=== PATIENT | male | born 1950 | race Caucasian/White ===

== ENCOUNTER 2020-07-16 13:19 | Observation (INO) ==
[2020-07-16] MEDS ORDERED: NORMAL SALINE 1,000 ML IV ONE ×2 (13:55→17:16)
--- NOTE | 2020-07-16 14:04 | ERNOTE ---
Medical Problem HPI - Narrative Date of Service: 07/16/20 - General Chief Complaint: Diabetes Related Problem Time Seen by Provider: 07/16/20 13:50 Source: patient Exam Limitations: hard of hearing - Immun/Allergies/Home Medications Immunizations: IMMUNIZATION HX Immunizations Up to Date Yes History of Influenza Vaccine Yes Hx Pneumococcal Vaccination Yes Allergies/Adverse Reactions: Allergies No Known Allergies Allergy (Verified 07/16/20 13:56) Home Medications: HOME MEDICATIONS Albuterol Sulfate [Proair Respiclick] 90 mcg IH BID 03/07/18 [Last Taken Unknown] Blood Sugar Diagnostic, Drum [Accu-Chek Compact] 1 each MC TID 03/07/18 [Last Taken Unknown] Calcium Carbonate [Tums] 500 mg PO PRN PRN 03/07/18 [Last Taken Unknown] HYDROcodone/ACETAMINOPHEN [Hydrocodon-Acetaminophen 5-325] 1 each PO PRN PRN 03/07/18 [Last Taken Unknown] Insulin Glargine,Hum.rec.anlog [Lantus] 15 units SC HS 03/07/18 [Last Taken Unknown] Losartan Potassium [Cozaar] 100 mg PO DAILY 03/07/18 [Last Taken Unknown] Omeprazole 20 mg PO BID 03/07/18 [Last Taken Unknown] QUEtiapine FUMARATE [Seroquel] 25 mg PO HS 03/07/18 [Last Taken Unknown] Sildenafil Citrate 100 mg PO PRN 03/07/18 [Last Taken Unknown] Silver Sulfadiazine [Silvadene] 1 appl TP PRN 03/07/18 [Last Taken Unknown] Skin Cleanser Comb No.31 [Skintegrity] 236 ml TP PRN 03/07/18 [Last Taken Unknown] Tamsulosin HCl [Flomax] 0.4 mg PO DAILY 03/07/18 [Last Taken Unknown] glipiZIDE [Glipizide] 10 mg PO BID 03/07/18 [Last Taken Unknown] metFORMIN HCL [Metformin HCl] 1,000 mg PO BID 03/07/18 [Last Taken Unknown] - History of Present History Narrative: Patient presents to the ED for high blood sugars. He relates that he really hasn't been eating well the last couple of days. Blood sugar over 400. Took insulin last night. He relates that a few days ago did not feel well but no specific complaints. No fever. No falls. No syncope. states he gets winded when he walks, but this is not acute. Timing: other - getting better Severity: moderate Modifying Factors - (Improves): Present: other - nothing Modifying Factors - (Worsens): Present: other - nothing Review of Systems - Review of Systems Constitutional: Absent: fever EYE: Present: no symptoms reported ENT: Absent: sore throat Respiratory: Present: See HPI Cardiology: Absent: syncope Gastrointestinal/Abdominal: Absent: abdominal pain Genitourinary: Absent: dysuria Neurological: Absent: weakness Endocrine: Present: See HPI All Other Systems: All systems neg except as marked Medical History (Last Reviewed 07/16/20 @ 14:02 by Joon Chin MD) Acute lower urinary tract infection Anemia Atrial fibrillation BPH (benign prostatic hyperplasia) Back pain CAD (coronary artery disease) Colon cancer screening Coronary arteriosclerosis Esophagitis GERD (gastroesophageal reflux disease) Hepatitis C antibody test positive Hyperlipidemia Hypertension Insomnia Insulin dependent diabetes mellitus [place] Obesity Sensorineural hearing loss Sleep apnea Spinal stenosis in cervical region Umbilical hernia without mention of obstruction or gangrene Venous thrombosis and embolism Surgical History: Surgical History (Last Reviewed 07/16/20 @ 14:02 by Joon Chin MD) History of amputation of toe Social History: (Last Reviewed 07/16/20 @ 14:02 by Joon Chin MD) Tobacco: Smoking Status: Former smoker Alcohol: alcohol intake: never Substance Use: substance use type: does not use Physical Exam - Physical Exam General Appearance: Present: alert, no apparent distress Head Exam: Present: normal inspection, no evidence of injury Eye Exam: Normal inspection: bilateral, PERRL: bilateral Ears, Nose, Throat: Present: normal ENT inspection Neck: Present: normal inspection Respiratory: Present: no respiratory distress, normal breath sounds, no accessory muscle use, lungs clear Cardiovascular/Chest: Present: tachycardia, irregularly irregular Gastrointestinal/Abdominal: Present: normal bowel sounds, nontender, soft Back Exam: Absent: CVA tenderness (R), CVA tenderness (L) Extremity Exam: Present: normal range of motion Neurological Exam: Present: alert, no motor/sensory deficits Skin Exam: Present: normal color, warm/dry Progress - Results and Orders Patient's Lab Results:: I have reviewed the patient's lab results. - Vital Signs Patient's Vital Signs:: I have reviewed the patient's vital signs. Vital Signs: Vital Signs 07/16/20 13:30 Temperature 35.9 C L Pulse Rate 92 Respiratory Rate 98 H Blood Pressure 103/62 O2 Sat by Pulse Oximetry 98 - EKG EKG #1 EKG: atrial fibrillation EKG read: Interp. by me EKG Comments: A fib rate 116. RBBB (Old). No clear evidence of STEMI. - X-Ray X-Ray #1 X-Ray: chest Interpretation: Interp. by me X-ray Comments: I personally reviewed CXR images as well as official radiology report. - Progress/Reassessment Chief Complaint: Diabetes Related Problem Progress Note-Subjective: 07/16/20 17:24 Patient given IV fluids here. He has elevated WBC, elevated Cr that is new. Has a fib with RVR (patient has Hx a fib by chart but does not remember that being the case). He ambulated here and desaturated to 87% RA and his HR went to 150s. Given all of these findings I felt hospital observation most appropriate. Patient is agreeable to this and wants to stay [facility] than [facility] I spoke with Dr Albright who will admit the patient obs. Departure Clinical Impression: Atrial fibrillation with RVR, Dehydration, DEBRA (acute kidney injury), Hyperglycemia - Departure Disposition: Still a patient Condition: Fair
[2020-07-16 14:17] LABS: Hematocrit 47.6 % (42.0-52.0); Hemoglobin 15.6 gm/dL (13.5-18.0); Mean Cell Volume 85.6 fl (78-100); Mean Corpuscular Hemoglobin 28.1 pg (27-31); Mean Corpuscular Hgb Conc 32.8 g/dl (32-36); Mean Platelet Volume 10.2 fl (8-11.3); Neutrophil % 72.2 % (42-75.0); Platelet Count 330 K/mm3 (150-450); Red Blood Count 5.56 M/mm3 (4.7-6.0); Red Cell Distribution Width 13.4 % (11.5-14.0); White Blood Count 13.9 K/mm3 (4.0-10.5)
[2020-07-16 14:26] LABS: Prothrombin Time (Patient) 10.8 Seconds (9.1-10.7)
[2020-07-16 14:29] LABS: INR 1.04 INR (0.92-1.08); Partial Thrombolplastin Time 24.9 Seconds (24-32)
[2020-07-16 14:37] LABS: ALT 39 U/L (19-67); AST 17 U/L (0-48); Albumin * 3.5 gm/dl (3.4-5.0); Alkaline Phosphatase * 111 U/L (50-170); Anion Gap 14.7 mmol/L (6.8-13.8); BNP * 623 pg/mL (5-350); BUN/Creatinine Ratio 19.8 (9.0-21.6); Bilirubin, Total 0.5 mg/dL (0.0-1.1); Blood Urea Nitrogen 36 mg/dL (6-23); Ca. Corrected For Albumin 9.2 mg/dL (8.4-10.2); Calcium * 9.1 mg/dL (7.9-10.9); Carbon Dioxide 23.2 mmol/L (24-32.6); Chloride 99 mmol/L (97-106); Glucose * 378 mg/dL (70-110); Potassium 4.9 mmol/L (3.4-4.6); Sodium 132 mmol/L (132-142); Total Protein 7.5 gm/dL (6.2-8.2)
[2020-07-16 14:40] LABS: Troponin I Less than 0.017 ng/mL (0.00-0.10)
[2020-07-16] MEDS ORDERED: cefTRIAXone SODIUM 1,000 MG/100 ML BAG IV ONE (15:45)
[2020-07-16 15:54] LABS: Urine Bilirubin Negative (NEGATIVE); Urine Blood Negative /ul (NEGATIVE); Urine Ketone Negative (NEGATIVE); Urine Nitrite Negative (NEGATIVE); Urine Protein Negative (NEGATIVE); Urine Specific Gravity 1.025 SP.GR. (1.005-1.030); Urine Urobilinogen Normal (NORMAL); Urine pH 5.5 pH (5.0-7.0)
[2020-07-16 16:03] LABS: Urine Appearance Clear (CLEAR); Urine Color Yellow
[2020-07-16 16:04] LABS: Urine Bacteria TRACE; Urine RBC None Seen /hpf (0-5); Urine WBC TRACE /hpf (0-5)
--- NOTE | 2020-07-16 17:43 | HP ---
Chief Complaint - Chief Complaint Date of Service: 07/16/20 Time of Service: 17:11 Chief Complaint: Elevated blood sugar, shortness of breath with exertion History of Present Illness: 70-year-old male with a past medical history of atrial fibrillation not on anticoagulation, anemia, CAD, BPH, GERD, hepatitis C, hyperlipidemia, obesity, insomnia, insulin-dependent diabetes mellitus, sleep apnea, spinal stenosis presents from home with complaints of a blood sugar reading over 400. He states he has also been having shortness of breath with exertion for the past 6 months. [facility] In the ER he was found to have A. fib and his heart rate increased to 150 with ambulation, his O2 sats were normal at rest but he desaturated to 87% with ambulation. Labs showed a mild leukocytosis of 13.9, he appears to run high every time he has been seen in the ER and white blood cell ranges from 11.3-12.4 in the past. Blood work is also positive for elevated lactic acid of 2.8, random glucose of 378, potassium of 4.9, GFR of 39 and creatinine of 1.82, creatinine in 2008 was 1.35 and GFR in 2008 was 56. BNP of 623, troponin of less than 0.017. UA was negative and chest x-ray showed no acute chest disease, small hiatal hernia. He received 1 dose of ceftriaxone in the emergency room and IV fluids. He denies chest pain or abdominal pain. He is being admitted for further evaluation and monitoring of the A. fib and dehydration. Medical History (Last Reviewed 07/16/20 @ 14:02 by Joon Chin MD) Acute lower urinary tract infection Anemia Atrial fibrillation BPH (benign prostatic hyperplasia) Back pain CAD (coronary artery disease) Colon cancer screening Coronary arteriosclerosis Esophagitis GERD (gastroesophageal reflux disease) Hepatitis C antibody test positive Hyperlipidemia Hypertension Insomnia Insulin dependent diabetes mellitus [place] Obesity Sensorineural hearing loss Sleep apnea Spinal stenosis in cervical region Umbilical hernia without mention of obstruction or gangrene Venous thrombosis and embolism Surgical History: Surgical History (Last Reviewed 07/16/20 @ 14:02 by Joon Chin MD) History of amputation of toe Family History: Family History (Last Updated 07/16/20 @ 17:46 by Abeba Albright MD) Other Family history non-contributory Social History: (Last Reviewed 07/16/20 @ 14:02 by Joon Chin MD) Tobacco: Smoking Status: Former smoker Alcohol: alcohol intake: never Substance Use: substance use type: does not use Review Of Systems (GEN) - Review of Systems Generalized/Overall Review: Absent: Fever Respiratory: Present: Shortness of Breath - With exertion Cardiac: Absent: Chest Pain Abdominal: Absent: Abdominal Pain Misc: All systems neg except as marked Immunizations: IMMUNIZATION HX Immunizations Up to Date Yes History of Influenza Vaccine Yes Hx Pneumococcal Vaccination Yes Allergies/Adverse Reactions: Allergies Allergy/AdvReac Type Severity Reaction Status Date / Time No Known Allergies Allergy Verified 07/16/20 13:56 Home Medications: HOME MEDICATIONS Albuterol Sulfate [Proair Respiclick] 90 mcg IH BID 03/07/18 [Last Taken Unknown] Blood Sugar Diagnostic, Drum [Accu-Chek Compact] 1 each MC TID 03/07/18 [Last Taken Unknown] Calcium Carbonate [Tums] 500 mg PO PRN PRN 03/07/18 [Last Taken Unknown] HYDROcodone/ACETAMINOPHEN [Hydrocodon-Acetaminophen 5-325] 1 each PO PRN PRN 03/07/18 [Last Taken Unknown] Insulin Glargine,Hum.rec.anlog [Lantus] 15 units SC HS 03/07/18 [Last Taken Unknown] Losartan Potassium [Cozaar] 100 mg PO DAILY 03/07/18 [Last Taken Unknown] Omeprazole 20 mg PO BID 03/07/18 [Last Taken Unknown] QUEtiapine FUMARATE [Seroquel] 25 mg PO HS 03/07/18 [Last Taken Unknown] Sildenafil Citrate 100 mg PO PRN 03/07/18 [Last Taken Unknown] Silver Sulfadiazine [Silvadene] 1 appl TP PRN 03/07/18 [Last Taken Unknown] Skin Cleanser Comb No.31 [Skintegrity] 236 ml TP PRN 03/07/18 [Last Taken Unknown] Tamsulosin HCl [Flomax] 0.4 mg PO DAILY 03/07/18 [Last Taken Unknown] glipiZIDE [Glipizide] 10 mg PO BID 03/07/18 [Last Taken Unknown] metFORMIN HCL [Metformin HCl] 1,000 mg PO BID 03/07/18 [Last Taken Unknown] Exam - Exam Vital Signs: Vital Signs - Last Taken Temp 35.9 C L 07/16/20 13:30 Pulse 92 07/16/20 13:30 Resp 21 H 07/16/20 13:30 BP 103/62 07/16/20 13:30 Pulse Ox 98 07/16/20 13:30 Constitutional: Present: Alert, Cooperative, Well developed, Well nourished, No distress, Elderly, Obese ENT Exam: Present: hard of hearing, moist mucous membranes Eye Exam: bilateral eye: PERRL, EOMI, abnormal EOM Neck: Present: non-tender, supple. Absent: lymphadenopathy (R), lymphadenopathy (L) Back Exam: Present: no CVA tenderness, no vertebral tenderness, other - [place] left upper back Respiratory: Present: lungs clear, no respiratory distress, no accessory muscle use, No wheezing. Absent: crackles, rhonchi Cardiovascular/Chest: Present: normal peripheral pulses, no edema, no murmur, irregularly irregular Peripheral Pulses: dorsalis-pedis (R): 2+, dorsalis-pedis (L): 2+ Abdomen: Present: Normal bowel sounds, soft, nontender, obese Extremity: Present: non-tender, no pedal edema Skin Exam: Present: normal color, warm/dry Neurologic: Present: alert, normal mood/affect Appearance: Present: appropriate appearance, appropriate insight Eye contact: Present: cooperative Thoughts: Present: normal thought pattern, normal mood /affect Diagnostic Studies: Abnormal Lab Results 07/16/20 07/16/20 07/16/20 Range/Units 14:10 14:10 14:10 WBC 13.9 H (4.0-10.5) K/mm3 Immature Gran # (Auto) 0.05 H (0.000-0.0310) K/mm3 Neutrophils # 10.0 H (1.3-6.0) K/mm3 PT (9.1-10.7) Seconds Potassium 4.9 H (3.4-4.6) mmol/L Carbon Dioxide 23.2 L (24-32.6) mmol/L Anion Gap 14.7 H (6.8-13.8) mmol/L BUN 36 H (6-23) mg/dL Creatinine 1.82 H (0.4-1.4) mg/dL Est GFR (Non-Af Amer) 39 L D (60-130) mL/min Random Glucose 378 H (70-110) mg/dL Lactic Acid, Venous 2.8 H* (0.4-2.0) mmol/L B-Natriuretic Peptide 623 H (5-350) pg/mL Urine Glucose (UA) (NEGATIVE) mg/dL Hyaline Casts (NONE) /LPF 07/16/20 07/16/20 07/16/20 Range/Units 14:10 15:12 17:04 WBC (4.0-10.5) K/mm3 Immature Gran # (Auto) (0.000-0.0310) K/mm3 Neutrophils # (1.3-6.0) K/mm3 PT 10.8 H (9.1-10.7) Seconds Potassium (3.4-4.6) mmol/L Carbon Dioxide (24-32.6) mmol/L Anion Gap (6.8-13.8) mmol/L BUN (6-23) mg/dL Creatinine (0.4-1.4) mg/dL Est GFR (Non-Af Amer) (60-130) mL/min Random Glucose (70-110) mg/dL Lactic Acid, Venous 3.7 H* (0.4-2.0) mmol/L B-Natriuretic Peptide (5-350) pg/mL Urine Glucose (UA) >=1000 H (NEGATIVE) mg/dL Hyaline Casts 5-10 H (NONE) /LPF Laboratory Results WBC 13.9 K/mm3 (4.0-10.5) H 07/16/20 14:10 RBC 5.56 M/mm3 (4.7-6.0) 07/16/20 14:10 Hgb 15.6 gm/dL (13.5-18.0) 07/16/20 14:10 Hct 47.6 % (42.0-52.0) 07/16/20 14:10 MCV 85.6 fl (78-100) 07/16/20 14:10 MCH 28.1 pg (27-31) 07/16/20 14:10 MCHC 32.8 g/dl (32-36) 07/16/20 14:10 RDW 13.4 % (11.5-14.0) 07/16/20 14:10 Plt Count 330 K/mm3 (150-450) 07/16/20 14:10 MPV 10.2 fl (8-11.3) 07/16/20 14:10 Immature Gran % (Auto) 0.40 % (0.001-0.429) 07/16/20 14:10 Immature Gran # (Auto) 0.05 K/mm3 (0.000-0.0310) H 07/16/20 14:10 Neutrophils % 72.2 % (42-75.0) 07/16/20 14:10 Lymphocytes % 20.6 % (20-51) 07/16/20 14:10 Monocytes % 5.9 % (0.0-9) 07/16/20 14:10 Eosinophils % 0.6 % (0.0-3.0) 07/16/20 14:10 Basophils % 0.3 % (0.0-1.0) 07/16/20 14:10 Nucleated RBC % 0.0 k/mm3 (0-1) 07/16/20 14:10 Neutrophils # 10.0 K/mm3 (1.3-6.0) H 07/16/20 14:10 Lymphocytes # 2.87 k/mm3 (1.5-3.5) 07/16/20 14:10 Monocytes # 0.8 k/mm3 (0.0-1.0) 07/16/20 14:10 Eosinophils # 0.1 k/mm3 (0.0-0.7) 07/16/20 14:10 Absolute Basophils 0.0 k/mm3 (0.0-0.1) 07/16/20 14:10 PT 10.8 Seconds (9.1-10.7) H 07/16/20 14:10 INR (Anticoag Therapy) 1.04 INR (0.92-1.08) 07/16/20 14:10 PTT ([place]) 24.9 Seconds (24-32) 07/16/20 14:10 Sodium 132 mmol/L (132-142) 07/16/20 14:10 Plasma Sodium 136 mmol/L (130-142) 07/16/20 14:10 Potassium 4.9 mmol/L (3.4-4.6) H 07/16/20 14:10 Chloride 99 mmol/L (97-106) 07/16/20 14:10 Carbon Dioxide 23.2 mmol/L (24-32.6) L 07/16/20 14:10 Anion Gap 14.7 mmol/L (6.8-13.8) H 07/16/20 14:10 BUN 36 mg/dL (6-23) H 07/16/20 14:10 Creatinine 1.82 mg/dL (0.4-1.4) H 07/16/20 14:10 Est GFR (Non-Af Amer) 39 mL/min (60-130) L D 07/16/20 14:10 BUN/Creatinine Ratio 19.8 (9.0-21.6) 07/16/20 14:10 Random Glucose 378 mg/dL (70-110) H 07/16/20 14:10 Lactic Acid, Venous 3.7 mmol/L (0.4-2.0) H* 07/16/20 17:04 Calcium 9.1 mg/dL (7.9-10.9) 07/16/20 14:10 Calcium Adj for Albumin 9.2 mg/dL (8.4-10.2) 07/16/20 14:10 Total Bilirubin 0.5 mg/dL (0.0-1.1) 07/16/20 14:10 AST 17 U/L (0-48) 07/16/20 14:10 ALT 39 U/L (19-67) 07/16/20 14:10 Alkaline Phosphatase 111 U/L (50-170) 07/16/20 14:10 Troponin I Less than 0.017 ng/mL (0.00-0.10) 07/16/20 14:10 B-Natriuretic Peptide 623 pg/mL (5-350) H 07/16/20 14:10 Total Protein 7.5 gm/dL (6.2-8.2) 07/16/20 14:10 Albumin 3.5 gm/dl (3.4-5.0) 07/16/20 14:10 Urine Color Yellow 07/16/20 15:12 Urine Appearance Clear (CLEAR) 07/16/20 15:12 Urine pH 5.5 pH (5.0-7.0) 07/16/20 15:12 Ur Specific [place] 1.025 SP.GR. (1.005-1.030) 07/16/20 15:12 Urine Protein Negative mg/dL (NEGATIVE) 07/16/20 15:12 Urine Glucose (UA) >=1000 mg/dL (NEGATIVE) H 07/16/20 15:12 Urine Ketones Negative mg/dL (NEGATIVE) 07/16/20 15:12 Urine Blood Negative /ul (NEGATIVE) 07/16/20 15:12 Urine Nitrate Negative (NEGATIVE) 07/16/20 15:12 Urine Bilirubin Negative mg/dl (NEGATIVE) 07/16/20 15:12 Urine Urobilinogen Normal EU/dl (NORMAL) 07/16/20 15:12 Ur Leukocyte Esterase Negative /ul (NEGATIVE) 07/16/20 15:12 Urine RBC None seen /hpf (0-5) 07/16/20 15:12 Urine WBC Trace /hpf (0-5) 07/16/20 15:12 Ur Epithelial Cells Trace /hpf (0-5) 07/16/20 15:12 Urine Bacteria Trace (NONE) 07/16/20 15:12 Hyaline Casts 5-10 /LPF (NONE) H 07/16/20 15:12 Urine Culture Comments No culture indicated 07/16/20 15:12 Assessment/Plan - Narrative Narrative: 70-year-old male with a past medical history of atrial fibrillation not on anticoagulation, anemia, CAD, BPH, GERD, hepatitis C, hyperlipidemia, obesity, insomnia, insulin-dependent diabetes mellitus, sleep apnea, spinal stenosis presents from home with complaints of a blood sugar reading over 400. He states he has also been having shortness of breath with exertion for the past 6 months. [facility] In [facility] he was found to have A. fib and his heart rate increased to 150 with ambulation, his O2 sats were normal at rest but he desaturated to 87% with ambulation. Labs showed a mild leukocytosis of 13.9, he appears to run high every time he has been seen in the ER and white blood cell ranges from 11.3-12.4 in the past. Blood work is also positive for elevated lactic acid of 2.8, random glucose of 378, potassium of 4.9, GFR of 39 and creatinine of 1.82, creatinine in 2008 was 1.35 and GFR in 2008 was 56. BNP of 623, troponin of less than 0.017. UA was negative and chest x-ray showed no acute chest disease, small hiatal hernia. He received 1 dose of ceftriaxone in the emergency room and IV fluids. He denies chest pain or abdominal pain. He is being admitted for further evaluation and monitoring of the A. fib and dehydration. Plan #1 IV fluid hydration #2 consider starting metoprolol 25 mg twice daily #3 resume home medications for comorbidities #4 CBC and CMP in the morning - Assessment/Plan (1) Abnormal renal function Problem: Acute (2) Atrial fibrillation with RVR Problem: Acute (3) Dehydration Problem: Acute (4) Hyperglycemia Problem: Acute (5) Insulin dependent diabetes mellitus Problem: Chronic (6) History of hepatitis C Problem: Chronic (7) CAD (coronary artery disease) Problem: Chronic (8) BPH (benign prostatic hyperplasia) Problem: Chronic (9) GERD (gastroesophageal reflux disease) Problem: Chronic (10) Hypertension Problem: Chronic (11) Obesity (BMI 30-39.9) Problem: Chronic
[2020-07-16] MEDS ORDERED: SILDENAFIL CITRATE 100 MG PO SCH (17:45)
[2020-07-16] MEDS: METOPROLOL TARTRATE 25 MG TABLET PO SCH (20:52)
[2020-07-16] MEDS: glipiZIDE 10 MG TABLET PO SCH (20:52)
[2020-07-16] MEDS: PANTOPRAZOLE SODIUM 20 MG TABLET.DR PO SCH (20:52)
[2020-07-16] MEDS ORDERED: ALBUTEROL SULFATE 200 PUFF INHALER IH SCH (21:00)
[2020-07-16] MEDS ORDERED: INSULIN GLARGINE,HUM.REC.ANLOG 100 UNITS/ML VIAL SC SCH (21:00)
[2020-07-16] MEDS ORDERED: QUEtiapine FUMARATE 25 MG TABLET PO SCH (21:00)
[2020-07-17 06:08] LABS: Hemoglobin 13.5 gm/dL (13.5-18.0); Mean Corpuscular Hemoglobin 28.3 pg (27-31); Mean Corpuscular Hgb Conc 32.9 g/dl (32-36); Mean Platelet Volume 9.8 fl (8-11.3); Neutrophil # 7.4 K/mm3 (1.3-6.0); Neutrophil % 59.2 % (42-75.0); Platelet Count 260 K/mm3 (150-450); Red Blood Count 4.77 M/mm3 (4.7-6.0); Red Cell Distribution Width 13.7 % (11.5-14.0); White Blood Count 12.5 K/mm3 (4.0-10.5)
[2020-07-17 06:20] LABS: Albumin * 3.1 gm/dl (3.4-5.0); Anion Gap 11.4 mmol/L (6.8-13.8); Bilirubin, Total 0.5 mg/dL (0.0-1.1); Ca. Corrected For Albumin 9.1 mg/dL (8.4-10.2); Calcium * 8.7 mg/dL (7.9-10.9); Carbon Dioxide 24.6 mmol/L (24-32.6); Total Protein 6.7 gm/dL (6.2-8.2)
[2020-07-17] MEDS ORDERED: ALBUTEROL SULFATE 2.5 MG/0.5 ML VIAL.NEB IH SCH (07:00)
[2020-07-17] MEDS: PANTOPRAZOLE SODIUM 20 MG TABLET.DR PO SCH (08:00)
[2020-07-17] MEDS: glipiZIDE 10 MG TABLET PO SCH (08:00)
[2020-07-17] MEDS: METOPROLOL TARTRATE 25 MG TABLET PO SCH (08:01)
--- NOTE | 2020-07-17 08:58 | DS ---
(1) Abnormal renal function Problem: Acute (2) Atrial fibrillation with RVR Problem: Acute (3) Dehydration Problem: Acute (4) Hyperglycemia Problem: Acute (5) Insulin dependent diabetes mellitus Problem: Chronic (6) History of hepatitis C Problem: Chronic (7) CAD (coronary artery disease) Problem: Chronic (8) BPH (benign prostatic hyperplasia) Problem: Chronic (9) GERD (gastroesophageal reflux disease) Problem: Chronic (10) Hypertension Problem: Chronic (11) Obesity (BMI 30-39.9) Problem: Chronic Hospital Course: 70-year-old male with a past medical history of atrial fibrillation not on anticoagulation, anemia, CAD, BPH, GERD, hepatitis C, hyperlipidemia, obesity, insomnia, insulin-dependent diabetes mellitus, sleep apnea, spinal stenosis presents from home with complaints of a blood sugar reading over 400. He states he has also been having shortness of breath with exertion for the past 6 months. [facility] In the ER he was found to have A. fib and his heart rate increased to 150 with ambulation, his O2 sats were normal at rest but he desaturated to 87% with ambulation. Labs showed a mild leukocytosis of 13.9, he appears to run high every time he has been seen in the ER and white blood cell ranges from 11.3-12.4 in the past. Blood work is also positive for elevated lactic acid of 2.8, random glucose of 378, potassium of 4.9, GFR of 39 and creatinine of 1.82, creatinine in 2008 was 1.35 and GFR in 2008 was 56. BNP of 623, troponin of less than 0.017. UA was negative and chest x-ray showed no acute chest disease, small hiatal hernia. He received 1 dose of ceftriaxone in the emergency room and IV fluids. He denies chest pain or abdominal pain. He is being admitted for further evaluation and monitoring of the A. fib and dehydration. His white blood cell count has decreased from 13.9-12.5, GFR has improved to 40 and creatinine to 1.79. He feels better today. His heart rate is controlled with metoprolol 25 mg twice a day. I will discharge him home today on metoprolol 25 mg twice daily. He will follow-up with his PCP within the next 1 to 2 weeks. Procedures Performed: none Results and Findings: Lab Pending Results 07/16/20 14:10: WBC 13.9 H, RBC 5.56, Hgb 15.6, Hct 47.6, MCV 85.6, MCH 28.1, MCHC 32.8, RDW 13.4, Plt Count 330, MPV 10.2, Immature Gran % (Auto) 0.40, Immature Gran # (Auto) 0.05 H, Neutrophils % 72.2, Lymphocytes % 20.6, Monocytes % 5.9, Eosinophils % 0.6, Basophils % 0.3, Nucleated RBC % 0.0, Neutrophils # 10.0 H, Lymphocytes # 2.87, Monocytes # 0.8, Eosinophils # 0.1, Absolute Basophils 0.0 07/16/20 14:10: Sodium 132, Plasma Sodium 136, Potassium 4.9 H, Chloride 99, Carbon Dioxide 23.2 L, Anion Gap 14.7 H, BUN 36 H, Creatinine 1.82 H, Est GFR (Non-Af Amer) 39 L D, BUN/Creatinine Ratio 19.8, Random Glucose 378 H, Calcium 9.1, Calcium Adj for Albumin 9.2, Total Bilirubin 0.5, AST 17, ALT 39, Alkaline Phosphatase 111, Troponin I Less than 0.017, B-Natriuretic Peptide 623 H, Total Protein 7.5, Albumin 3.5 07/16/20 14:10: Lactic Acid, Venous 2.8 H* 07/16/20 14:10: PT 10.8 H, INR (Anticoag Therapy) 1.04, PTT ([place]) 24.9 07/16/20 15:12: Urine Color Yellow, Urine Appearance Clear, Urine pH 5.5, Ur Specific [place] 1.025, Urine Protein Negative, Urine Glucose (UA) >=1000 H, Urine Ketones Negative, Urine Blood Negative, Urine Nitrate Negative, Urine Bilirubin Negative, Urine Urobilinogen Normal, Ur Leukocyte Esterase Negative, Urine RBC None seen, Urine WBC Trace, Ur Epithelial Cells Trace, Urine Bacteria Trace, Hyaline Casts 5-10 H, Urine Culture Comments No culture indicated 07/16/20 17:04: Lactic Acid, Venous 3.7 H* 07/16/20 17:43: SARS-CoV-2 (PCR) Not detected 07/17/20 05:55: WBC 12.5 H, RBC 4.77, Hgb 13.5, Hct 41.0 L, MCV 86.0, MCH 28.3, MCHC 32.9, RDW 13.7, Plt Count 260, MPV 9.8, Immature Gran % (Auto) 0.30, Immature Gran # (Auto) 0.04 H, Neutrophils % 59.2, Lymphocytes % 31.1, Monocytes % 7.7, Eosinophils % 1.4, Basophils % 0.3, Nucleated RBC % 0.0, Neutrophils # 7.4 H, Lymphocytes # 3.89 H, Monocytes # 1.0, Eosinophils # 0.2, Absolute Basophils 0.0 07/17/20 05:55: Sodium 137, Plasma Sodium 139, Potassium 4.0, Chloride 105, Carbon Dioxide 24.6, Anion Gap 11.4, BUN 34 H, Creatinine 1.79 H, Est GFR (Non- Af Amer) 40 L, BUN/Creatinine Ratio 19.0, Random Glucose 198 H D, Calcium 8.7, Calcium Adj for Albumin 9.1, Total Bilirubin 0.5, AST 12, ALT 31, Alkaline Phosphatase 92, Total Protein 6.7, Albumin 3.1 L Discharge Location: Home Disposition: Home self-care Condition: Fair Discharge Activity: Activity as tolerated Discharge Diet: Consistent carbs, Low salt Additional Patient Instructions (free text): Follow up with your primary care provider at [facility] [place]- on August 06 at 10:30. Fax records from this stay to [phone]. Prescriptions (Any new or edited meds): Metoprolol Tartrate [Lopressor] 25 mg PO BID #40 tab Transmission Status: Pending to [facility] Complete Home Medications List: Complete Home Medication List: Albuterol Sulfate [Proair Respiclick] 90 mcg IH BID 03/07/18 Blood Sugar Diagnostic, Drum [Accu-Chek Compact Plus Strips] 1 each MC TID 03/07/18 Calcium Carbonate [Tums] 500 mg PO PRN PRN 03/07/18 HYDROcodone/ACETAMINOPHEN [Hydrocodone-Acetamin 5-325 mg] 1 each PO PRN PRN 03/07/18 Insulin Glargine,Hum.rec.anlog [Lantus] 15 units SC HS 03/07/18 Losartan Potassium [Cozaar] 100 mg PO DAILY 03/07/18 Omeprazole 20 mg PO BID 03/07/18 QUEtiapine FUMARATE [Seroquel] 25 mg PO HS 03/07/18 Sildenafil Citrate 100 mg PO PRN 03/07/18 Silver Sulfadiazine [Silvadene] 1 appl TP PRN 03/07/18 Skin Cleanser Comb No.31 [Skintegrity] 236 ml TP PRN 03/07/18 Tamsulosin HCl [Flomax] 0.4 mg PO DAILY 03/07/18 glipiZIDE [Glipizide] 10 mg PO BID 03/07/18 metFORMIN HCL [Metformin HCl] 1,000 mg PO BID 03/07/18 Metoprolol Tartrate [Lopressor] 25 mg PO BID #40 tab 07/17/20 Forms: Patient Portal Registration
[2020-07-17] MEDS ORDERED: TAMSULOSIN HCL 0.4 MG CAP.SR.24H PO SCH ×2 (09:00→18:00)
[2020-07-17] MEDS ORDERED: LOSARTAN POTASSIUM 50 MG TABLET PO SCH (09:00)
[2020-07-17 09:49] VITALS: BP 120/72
== END 2020-07-17 09:40 | disposition home or self-care (01) ==
LOC: ER 13:19 → MS 13:19
PROVIDERS: ADMIT Internal Medicine; ATTEND Internal Medicine